=== PATIENT | male | born 1995 | race Caucasian/White ===

== ENCOUNTER 2019-08-07 19:07 | Emergency (ER) | payer SELFPAY ==
[2019-08-07] MEDS ORDERED: Albuterol/Ipratropium 3.0-0.5 MG/3 ML Neb Soln NEB ONE (19:37)
[2019-08-07] MEDS ORDERED: Albuterol/Ipratropium 3.0-0.5 MG/3 ML Neb Soln ONE (19:38)
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
== END 2019-08-07 20:05 | disposition home or self-care (01) ==
LOC: JP.ED 19:07
DX: J45.40 Moderate persistent asthma, uncomplicated (principal); Z88.1 Allergy status to other antibiotic agents; Z79.899 Other long term (current) drug therapy
CPT/HCPCS: 94640; 99284; 99284-25; J7620-GY

== ENCOUNTER 2019-08-08 04:56 | Emergency (ER) | payer SELFPAY ==
--- NOTE | 2019-08-08 05:12 | EDM.PDOC ---
ED HPI GENERAL MEDICAL PROBLEM - General Chief Complaint: Asthma Stated Complaint: ASTHMA ATTACK Time Seen by Provider: 08/08/19 05:09 Source of Information: Reports: Patient History Limitations: Reports: No Limitations - History of Present Illness Onset: Today (seen in this ED yesterday. told provider at that time [place] and he didn't need a Rx.) Duration: Chronic, Waxing/Waning - Related Data Allergies Allergy/AdvReac Type Severity Reaction Status Date / Time amoxicillin Allergy Rash Verified 08/08/19 05:20 Home Meds: Home Meds Albuterol [Ventolin HFA] 1 puff .XX QID 08/07/19 [History] Montelukast Sodium [Singulair] 1 tab PO DAILY 08/07/19 [History] Albuterol Sulfate [Albuterol Sulfate Hfa] 8.5 gm IH Q6HR PRN #1 [email or web address] 08/07 [Rx] Past Medical History Respiratory History: Reports: Asthma Musculoskeletal History: Reports: Fracture Social & Family History - Tobacco Use Smoking Status *Q: Never Smoker Second Hand Smoke Exposure: No - Caffeine Use Caffeine Use: Reports: Coffee, Soda - Recreational Drug Use Recreational Drug Use: No ED ROS GENERAL - Review of Systems Review Of Systems: See Below Respiratory: Reports: Wheezing ED EXAM, GENERAL - Physical Exam Exam: See Below Exam Limited By: No Limitations General Appearance: Alert Course - Vital Signs Text/Narrative:: Administered Duoneb. Auscultation at 05:45 is perfectly clear without any wheezing. Patient states he feels much better. Last Recorded V/S: Last Vital Signs Temp 35.8 C L 08/08/19 05:22 Pulse 100 08/08/19 05:22 Resp 24 H 08/08/19 05:22 BP 121/84 08/08/19 05:22 Pulse Ox 93 L 08/08/19 05:22 - Orders/Labs/Meds Orders: Active Orders 24 hr Category Date Time Status RT Aerosol Therapy [RC] ASDIRECTED Care 08/08/19 05:33 Active Meds: Medications Discontinued Medications Generic Name Dose Route Start Last Admin Trade Name Freq PRN Reason Stop Dose Admin Albuterol/Ipratropium 3 ml 08/08/19 05:33 08/08/19 05:40 Duoneb 3.0-0.5 Mg/3 Ml NEB 08/08/19 05:34 3 ml ONETIME ONE Administration Departure - Departure Time of Disposition: 05:47 Disposition: Home, Self-Care 01 Clinical Impression: Asthma attack Qualifiers: Asthma severity: mild Asthma persistence: intermittent Qualified Code(s): J45.21 - Mild intermittent asthma with (acute) exacerbation - Discharge Information Prescriptions: Albuterol Sulfate [Albuterol Sulfate Hfa] 8.5 gm IH Q6HR PRN #1 [email or web address] PRN Reason: Wheezing Instructions: Asthma Attack Referrals: PCP,None [Primary Care Provider] - Forms: ED Department Discharge Sepsis Event Note - Focused Exam Vital Signs: Vital Signs Temp Pulse Resp BP Pulse Ox 08/08/19 05:22 35.8 C L 100 24 H 121/84 93 L Date Exam was Performed: 08/08/19 Time Exam was Performed: 05:44 - My Orders Last 24 Hours: My Active Orders 08/08/19 05:33 RT Aerosol Therapy [RC] ASDIRECTED - Assessment/Plan Last 24 Hours: My Active Orders 08/08/19 05:33 RT Aerosol Therapy [RC] ASDIRECTED
[2019-08-08] MEDS ORDERED: Albuterol/Ipratropium 3.0-0.5 MG/3 ML Neb Soln NEB ONE (05:33)
== END 2019-08-08 06:02 | disposition home or self-care (01) ==
LOC: JP.ED 04:56
DX: J45.21 Mild intermittent asthma with (acute) exacerbation (principal); Z88.1 Allergy status to other antibiotic agents; Z79.899 Other long term (current) drug therapy
CPT/HCPCS: 94640; 99284; 99284-25; J7620-GY